=== PATIENT | female | born 1965 | race African-American/Black ===

== ENCOUNTER 2022-05-28 13:46 | Outpatient (CLI) | payer BC | END 2022-05-28 13:47 | disposition home or self-care (01) | LOC: CSHMRI 13:46 | PROVIDERS: ATTEND Orthopaedic Surgery | DX: M24.811 Other specific joint derangements of right shoulder, not elsewhere classified (principal) ==

== ENCOUNTER 2022-06-11 14:33 | Outpatient (CLI) | payer BC | END 2022-06-11 14:34 | disposition home or self-care (01) | LOC: CSHMRI 14:33 | PROVIDERS: ATTEND Orthopaedic Surgery | DX: M24.811 Other specific joint derangements of right shoulder, not elsewhere classified (principal); M19.011 Primary osteoarthritis, right shoulder; M75.111 Incomplete rotator cuff tear or rupture of right shoulder, not specified as traumatic; M75.81 Other shoulder lesions, right shoulder; M75.51 Bursitis of right shoulder; S43.431A Superior glenoid labrum lesion of right shoulder, initial encounter ==